=== PATIENT | male | born 1960 | race Caucasian/White ===

== ENCOUNTER 2020-12-19 12:05 | Day surgery (SDC) | payer OTHER, SELFPAY ==
--- NOTE | 2020-12-19 | IR_ITS ---
APPROVED REPORT Patient Location: Outpatient Clinical Physician Assistant: JUNIE Witt RT (R) PROCEDURES 1. Pocket formation for biventricular pacemaker generator with cardiac resynchronization/defibrillator therapy. 2. Placement of atrial sensing and pacing lead into the right atrial appendage. 3. Placement of a right ventricular sensing, pacing and shocking lead in the right ventricular apex. 4. Placement of left ventricular sensing pacing lead via the coronary sinus. 5. Permanent cardiac resynchronization therapy with ICD implantation/biventricular pacemaker. INDICATION Systolic Congestive Heart Failure, ejection <35%, Wide QRS >120ms, [place] Heart Assoication Class 3 Congestive Heart Failure Informed consent was obtained prior to the procedure. COMPLICATIONS NONE Estimated Blood Loss: LESS THAN 10 ML TECHNIQUE 1% Lidocaine with epinephrine used to anesthetized the left anterior aspect of the chest. Scalpel was used to make the initial cutaneous incision while electrocautery was used to dissect down tinto the fascia. The fascia was lifted off the pectoralis muscle and digitally manipulated creating a pocket for the defibrillator. The patient was then placed in Trendelenburg position and the subclavian vein was accessed 3 times via the Selinger technique. A 8 [place] sheath was placed under fluoroscopic guidance into the subclavian vein. The dilator was removed from the sheath. Using fluoroscopic guidance, the ventricular lead was placed into the right ventricular apex, screwed and secured into place. Electronic interrogation proved acceptable thresholds and voltage within the lead. Using 3-0 silk, the ventricular lead was then secured into place and sheath peeled away. Following this, a 9.5 [place] sheath and dilator was then placed over one of the wires while keeping the other wire in place within the subclavian vein. The dilator was removed from the sheath. Using fluoroscopic guidance, contrast was used to visualize the coronary sinus, the left ventricular lead was placed into the coronary sinus. Electronic interrogation proved acceptable thresholds and voltage within the lead. Using 3-0 silk, the left ventricular lead was then secured into place and sheath peeled away.An additional 6 [place] fresh sheath and dilator was placed over the existing wire. Using fluoroscopic guidance, the atrial lead was then placed into the right atrial appendage and screwed and secured in place. Electrical interrogation demonstrated acceptable thresholds and voltage number. The atrial lead was then secured into place using 3-0 silk and sheath peeled away. 1 gram of Ancef was used to flush the pocket. All 3 leads were connected to generator and tested via computer. The defibrillator then secured to the fascia. Monocryl was used to close the subcutaneous layers while shahid were used to close the cutaneous layer. A pressure dressing was placed and the patient was transferred to the postop holding area in stable condition for postoperative care. INTERROGATION Generator Model number: VIGILANT X4 EVENT DECORATOR-D IS-1/DF4/IS4 G247 Generator Serial number: [id number] Atrial lead model number: INGEVITY + IS-1 Bi Positive Fix RA/RV 52cm 7841 Atrial lead serial number: [id number] P-wave: 1.8 mV Impedence: 457 Ohms Threshold: 0.7V@0.4ms Left Ventricular lead model number: RUBA X4 Straight LVA Quad Electrode IS4 Passive 86 cm 4671 Left Ventricular lead serial number: [id number] R-wave: 4.0 mV Threshold: 1.6V@1.0ms Right Ventricular lead model number: CAHONE 4-FRONT Active Fix Dual Coil 59 cm 0675 Right Ventricular lead serial number: [id number] R-wave: 10.0mV Impedence: 586 Ohms Threshold: 0.4V@0.4ms
[2020-12-19 12:14] VITALS: BMI 39.0
--- NOTE | 2020-12-19 12:15 | XR_ITS ---
PROCEDURE INFORMATION: Exam: XR Chest Exam date and time: 12/19/2020 12:15 PM Age: 60 years old Clinical indication: Device placement; Cardiac defibrillator placementor adjustment; Patient HX: Defibulator placement; Additional info: Confirm pacemaker/aid placement TECHNIQUE: Imaging protocol: XR of the chest. Views: 1 view. COMPARISON: XA CL PACEMAKER DEFIBRILATOR 12/19/2020 1:16 PM FINDINGS: Lungs: Hazy interstitial opacities in both lungs could reflect interstitial edema versus interstitial pneumonia. Granulomatous change. Pleural spaces: Mild bilateral pleural effusion. No pneumothorax. Heart/Mediastinum: Cardiomegaly. Dual lead left-sided cardiac pacemaker. Bones/joints: Unremarkable. IMPRESSION: Interstitial opacities bilaterally could reflect edema versus pneumonia. Correlate clinically.
[2020-12-19 12:55] VITALS: PULSE 42
[2020-12-19 17:14] VITALS: BP 106/58; PULSE 77; RESP 18; O2SAT 97
[2020-12-19 17:33] VITALS: BP 106/58; PULSE 77; RESP 18; O2SAT 97
[2020-12-19 17:45] VITALS: BP 120/72; PULSE 84; RESP 18; O2SAT 94
[2020-12-19 18:23] VITALS: BP 113/62; PULSE 79; RESP 18; O2SAT 98
--- NOTE | 2020-12-20 08:35 | P.PN_ITS ---
[facility] Anesthesia Checklist - Structural Data Admitted From: Home Planned Operative Procedure/s: pacemaker Consent for Planned Operative Procedure(s) Verified: Yes - Airway Assessment C-Spine Mobility Assessed: Yes TMJ Mobility Assessed: Yes Dentition: Edentulous - Neurological Assessment Level of Consciousness: Awake, Alert, Appropriate - Anesthesia Plan Anesthesia Risk discussed: Yes Anesthesia Plan: Verified ASA Class: IV Anesthesia Type: MAC [facility] History I have reviewed the patient's past medical history: Yes *Have you ever received a pneumonia vaccine?: No *Have you received a flu vaccine this season?: Yes Anesthesia experience/problems:: none - *Social History Last grade of school completed: GED Smoking Status: Former smoker Alcohol Intake: never Substance Use Type: denies use *Occupational Status:: disabled *Travel in the last 8 weeks: None Family Hx:: No significant family history
== END 2020-12-19 18:24 | disposition home or self-care (01) ==
LOC: CATHLAB 12:08
PROVIDERS: Visit Provider Internal Medicine Cardiovascular Disease
PROC: 0JH609Z Insertion of Cardiac Resynchronization Defibrillator Pulse Generator into Chest Subcutaneous Tissue and Fascia, Open Approach (ICD-10-PCS; CPT 33249; principal; 2020-12-19 13:00)
DX: I50.23 Acute on chronic systolic (congestive) heart failure (principal); I42.9 Cardiomyopathy, unspecified; F17.210 Nicotine dependence, cigarettes, uncomplicated; I27.20 Pulmonary hypertension, unspecified; I11.0 Hypertensive heart disease with heart failure; Z79.01 Long term (current) use of anticoagulants; I25.10 Atherosclerotic heart disease of native coronary artery without angina pectoris; K21.9 Gastro-esophageal reflux disease without esophagitis; Z82.49 Family history of ischemic heart disease and other diseases of the circulatory system
CPT/HCPCS: 33249; 71045; C1725; C1769; C1882; C1895; C1898; C1900; J2405; J2704; Q9967